=== PATIENT | male | born 1960 | race Caucasian/White ===

== ENCOUNTER 2019-04-26 09:48 | Emergency (ER) | payer MEDICAID, OTHER ==
[~2019-04-26] VITALS: Ht 177.8 cm; Wt 87.0 kg
[~2019-04-26 09:48] MED LIST: MECL12.574 PO
[2019-04-26 09:52] VITALS: Ht 177.8 cm; Wt 87.0 kg
[2019-04-26] MEDS ORDERED: ONDANSETRON 4 MG INJ IV STA (10:17)
[2019-04-26] MEDS ORDERED: SOD CHLORIDE 0.9% 1,000 ML IV STA (10:17)
[2019-04-26] MEDS ORDERED: MECLIZINE 12.5 MG TAB PO ONE (10:30)
[2019-04-26 13:14] VITALS: BP 158/108; PULSE 105; RESP 18
== END 2019-04-26 13:05 | disposition home or self-care (01) ==
LOC: E/R 09:48
DX: I10 Essential (primary) hypertension (principal); E11.9 Type 2 diabetes mellitus without complications
CPT/HCPCS: 36415; 80053; 83690; 84484; 85025; 93005; 96374; J2405; J7030; Z7502; Z7610